=== PATIENT | female | born 1960 | race Caucasian/White ===

== ENCOUNTER 2022-07-14 21:54 | Emergency (ER) | payer OTHER, SELFPAY ==
[2022-07-14 22:05] VITALS: BP 154/65; PULSE 80; RESP 16; TEMP 36.8; O2SAT 97
[2022-07-14 22:12] LABS: Bilirubin Negative (Negative); Blood Negative (Negative); Clarity Clear (Clear); Glucose Negative (Negative); Ketones Negative (Negative); Leukocyte Esterase Negative (Negative); Nitrite Negative (Negative); Specific Gravity <= 1.005 (1.005-1.025); Urobilinogen 0.2 EU/dL (Up TO 0.2); pH 5.5 (5-8)
--- NOTE | 2022-07-14 22:32 | W.ED.GENAD ---
Discharge Plan Disposition Patient Disposition: HOME Condition: Stable Discharge Details Clinical Impression: Dysuria Primary Care Provider: Shania,Local ED Provider: Otto Hudson Home Meds and New Rx's Prescriptions: New nitrofurantoin monohyd/m-cryst [Macrobid] 100 mg capsule 100 mg PO Q12H 5 Days Qty: 10 0RF Rx Instructions: must administer with a meal/food Continued lisinopril 20 mg Tablet 20 mg PO DAILY estradiol 0.01 % (0.1 mg/gram) Cream 1 applic VAGINAL .ASDIREC Discharge Instructions Instructions: Dysuria (ED) Additional Instructions: At this time your urine did not show any signs of infection but given that you are traveling you have been prescribed an antibiotic and will need to take the paper prescription to the pharmacy if you need to start the antibiotic. It is recommended at this time that you do not take the antibiotic for the next 24 to 48 hours and stay well-hydrated, use [id number] AZO, and continue to monitor symptoms. If you develop any worsening symptoms start the antibiotic and take until fully completed for the full 5-day course. If you develop any severe worsening symptoms also return to the emergency department for reassessment if needed Referrals: Primary Care Provider [Outside] (As needed for reassessment) Medical Decision Making Pt here for Dysuria. Symptoms for 2 hours. denies fever, abd pain, nausea, diarrhea, flank pain or vaginal symptoms. Exam shows no CVA tenderness, no supra-pubic tenderness, otherwise neg exam and pt is non toxic in apperance. ddx to include dysuria, acute cyctitis/UTI, urethritis, Doubt Pyelonephritis or Infected kidney stone UA shows no finding to suggest UTI. PT prescribed pyrdium and given pocket prescription for Macrobid due to her having no primary care provider in the area to follow-up with. Follow up and return precautions discussed after discussion of diagnosis and plan of care patient has no further needs, questions, or concerns and states clear understanding to return to the emergency department for any worsening symptoms. This documentation was generated using [employer] system, please disregard any oddities of phrase or misspellings. Lab Data Lab results reviewed: Yes I reviewed the patient's lab results. HPI General Mode of arrival: ambulatory. Date/Time Provider Initiated Documentation: 07/14/22 22:00. Limitations to Documentation: no limitations. Information obtained by: patient and RN notes reviewed. History of Present Illness 61 year old F presents to the emergency department with the chief complaint of dysuria, urinary urgency and frequency, described as moderate and similar to prior episodes, Quality is described as burning and sharp, Patient reports no radiation. Patient started experiencing this hour(s) (2) and it has been now resolved. other things that improve symptom(s), (Hydrating) No exacerbating factors reported . Patient notes no other symptoms.. Patient did receive the following treatments prior to arrival, none Related Data Home Medications Medication Instructions Recorded Confirmed estradiol 0.01% (0.1 mg/gram) 1 applic vaginal .ASDIREC 07/14/22 07/14/22 vaginal cream lisinopril 20 mg tablet 20 mg PO DAILY 07/14/22 07/14/22 nitrofurantoin 100 mg PO Q12H 5 days #10 caps 07/14/22 monohydrate/macrocrystals 100 mg capsule (Macrobid) Previous Rx's Medication Instructions Recorded nitrofurantoin 100 mg PO Q12H 5 days #10 caps 07/14/22 monohydrate/macrocrystals 100 mg capsule (Macrobid) Allergies Allergy/AdvReac Type Severity Reaction Status Date / Time ciprofloxacin AdvReac Severe Other (See Unverified 07/14/22 22:10 Comment) General Stated Complaint: Urinary STEVAN: 4 Review of Systems Constitutional Constitutional: Denies body ache(s), Denies chills, Denies fever(s), Denies malaise and Denies weakness Cardiovascular Cardiovascular: Denies chest pain Respiratory Respiratory: Reports system reviewed and no additional complaints, except as documented Gastrointestinal Gastrointestinal: Denies abdominal pain, Denies nausea and Denies vomiting Genitourinary Genitourinary: Reports as per HPI, Denies hematuria, Reports dysuria, Denies urinary hesitancy, Reports urinary urgency and Denies vaginal discharge Neurologic Neurologic: Denies confusion and Denies weakness Psychiatric Psychiatric: Denies confusion PFSH All Active Problems Dysuria (Acute) Social History Smoking/Tobacco Use Status: Never Smoking risk assessment performed?: Yes Alcohol Intake: current Alcohol Intake frequency: 0-2 drinks per day Substance use type: does not use Do you feel safe at home: Yes Do you feel safe in your relationship?: Yes Exam Const General: cooperative and no acute distress Orientation: alert, awake and oriented x3 Resp Effort & Inspection: normal respiratory effort and able to speak in complete sentences Auscultation: clear to auscultation bilaterally Cardio Rate: regular rate Rhythm: regular rhythm Heart Sounds: S1 normal and S2 normal GI Palpation: nontender Back/Spine/Pelvis Back: no CVA tenderness Neuro General: patient alert, patient awake and patient oriented x3 Extrem General: capillary refill normal Course Vital Signs Vital signs: Vital Signs Temperature 36.8 C 07/14/22 22:05 Pulse 80 07/14/22 22:05 Respiratory Rate 16 07/14/22 22:05 Blood Pressure 154/65 H 07/14/22 22:05 Pulse Oximetry 97 07/14/22 22:05 Temperature 36.8 C 07/14/22 22:05 Temperature Source Oral 07/14/22 22:05 Pulse 80 07/14/22 22:05 Respiratory Rate 16 07/14/22 22:05 Respiratory Effort Non-Labored 07/14/22 22:05 Blood Pressure 154/65 H 07/14/22 22:05 Blood Pressure Position Sitting 07/14/22 22:05 Pulse Oximetry 97 07/14/22 22:05 Oxygen Delivery Method Room Air 07/14/22 22:05 Oxygen Flow Rate 0 07/14/22 22:05 Pain Level 0 07/14/22 22:05 Lab/Test Results Lab/Test Results: Laboratory Tests Range/Units 07/14/22 22:00 Urine Color (Yellow) Yellow Urine Clarity (Clear) Clear Urine pH (5-8) 5.5 Ur Specific [place] (1.005-1.025) <= 1.005 Urine Protein (Negative) mg/dL Negative Urine Ketones (Negative) mg/dL Negative Urine Blood (Negative) Negative Urine Nitrite (Negative) Negative Urine Bilirubin (Negative) Negative Urine Urobilinogen (Up TO 0.2) EU/dL 0.2 Ur Leukocyte Esterase (Negative) Negative Urine Glucose (Negative) mg/dL Negative PAWSS Have you Been Recently Intoxicated or Drunk Within the Last 30 days?: Yes Have you Ever Experienced Previous Episodes of Alcohol Withdrawal?: No Have you ever Experienced Withdrawal Seizures?: No Have you ever Experienced Delirium Tremens(DT)s?: No Have you ever undergone Alcohol Rehabilitation Treatment (i.e, inpt ot outpatient treatment programs)?: No Have you ever Experienced Blackouts?: Yes Have you ever Combined Alcohol with other Downers within the last 90 days?: No Have you ever Combined Alcohol with any other Substance of Abuse during the last 90 days?: No Positive Blood Alcohol level on Presentation? [PCS.BAL]: No Evidence of Increased Autonomic Activity (i.e. HR>120, tremor, sweating, agitation, nausea)?: No Result: 2
[2022-07-14] MEDS: Phenazopyridine 100 MG TAB, 2 TABS/BTL PO (22:45)
[2022-07-14] MEDS: Phenazopyridine 100 MG TAB PO (22:45)
== END 2022-07-14 22:46 | disposition home or self-care (01) ==
LOC: ER 22:38
PROVIDERS: Emergency Provider Nurse Practitioner Family
DX: R30.0 Dysuria (principal)
CPT/HCPCS: 99283; 81003; 99284